=== PATIENT | male | born 1960 | race Caucasian/White ===

== ENCOUNTER 2022-11-20 12:49 | Inpatient (IN) | payer OTHER ==
[2022-11-20 13:46] VITALS: BMI 19.0
[2022-11-20] MEDS ORDERED: MAG HYDROX/AL HYDROX/SIMETH 30 ML UNIT-DOSE CUP PO PRN (16:11)
[2022-11-20] MEDS ORDERED: IBUPROFEN 600 MG TABLET (FP) PO PRN (16:11)
[2022-11-20] MEDS ORDERED: guaiFENesin 600 MG TABLET.ER (FP) PO PRN (16:11)
[2022-11-20] MEDS ORDERED: NALOXONE HCL (KLOXXADO) 8 MG SPRAY NS PRN (16:11)
[2022-11-20] MEDS ORDERED: DICYCLOMINE HCL 10 MG CAPSULE PO PRN (16:11)
[2022-11-20] MEDS ORDERED: POLYETHYLENE GLYCOL (HEALTHYLAX) 3350 17 GM PACKET PO PRN (16:11)
[2022-11-20] MEDS ORDERED: ONDANSETRON *ODT* 4 MG TABLET SL PRN (16:11)
[2022-11-20] MEDS ORDERED: BENZONATATE 200 MG CAPSULE PO PRN (16:11)
[2022-11-20] MEDS ORDERED: hydrOXYzine PAMOATE 25 MG CAPSULE (FP) PO PRN (16:11)
[2022-11-20] MEDS ORDERED: ACETAMINOPHEN 325 MG TABLET (FP) PO PRN (16:11)
[2022-11-20] MEDS ORDERED: BISMUTH SUBSALICYLATE 524 MG/30 ML PO PRN (16:11)
[2022-11-20] MEDS ORDERED: IBUPROFEN 400 MG TABLET (FP) PO PRN (16:11)
[2022-11-20] MEDS ORDERED: BENZOCAINE/MENTHOL (CHLORASEPTIC ) LOZENGE MM PRN (16:11)
[2022-11-20] MEDS ORDERED: LOPERAMIDE HCL 2 MG CAPSULE PO PRN (16:11)
[2022-11-20] MEDS ORDERED: METHOCARBAMOL 500 MG TABLET PO PRN (16:11)
[2022-11-20] MEDS ORDERED: MAGNESIUM HYDROX 2400MG/30ML ORAL SUSPENSION 30 ML CUP PO PRN (16:11)
[2022-11-20] MEDS ORDERED: NALOXONE HCL 0.4 MG/ML VIAL IM PRN (16:11)
[2022-11-20] MEDS: THIAMINE HCL 100 MG TABLET (FP) PO SCH (22:22)
[2022-11-20] MEDS: MELATONIN 5 MG TABLETS PO SCH (22:22)
[2022-11-21] MEDS: PRENATAL VITAMINS W/ FOLIC ACID TABLET (FP) PO SCH (10:25)
[2022-11-21] MEDS ORDERED: diazePAM 5 MG TABLET PO PRN (11:04)
[2022-11-21] MEDS: diazePAM 5 MG TABLET PO SCH ×3 (11:41→23:11)
[2022-11-21 11:51] LABS: HEMATOCRIT 39.1 % (35.4-49); HEMOGLOBIN 13.2 GM/dL (11.7-16.9); MCH 33.6 pg (25.7-33.7); MCHC 33.8 g/dl (32.0-35.9); MEAN CELL VOLUME 99.4 fl (80-96); MEAN PLT VOLUME 8.6 fl (7.5-11.1); PLATELET COUNT 210 10^3/uL (134-434); RBC 3.94 M/mm3 (4.00-5.60); RDW 12.7 % (11.9-15.9); WHITE BLOOD COUNT 3.3 K/mm3 (4.0-10.0)
[2022-11-21 11:51] LABS: POTASSIUM 3.9 mmol/L (3.5-5.1)
[2022-11-21 11:54] LABS: CALCIUM 8.9 mg/dL (8.5-10.1)
[2022-11-21 11:55] LABS: BLOOD UREA NITROGEN 15.1 mg/dL (7-18)
[2022-11-21 11:56] LABS: ALBUMIN 3.4 g/dl (3.4-5.0)
[2022-11-21 11:58] LABS: CREATININE 0.8 mg/dL (0.55-1.3)
[2022-11-21 11:59] LABS: BILIRUBIN,TOTAL 0.5 mg/dL (0.2-1)
[2022-11-21] MEDS: MELATONIN 5 MG TABLETS PO SCH (23:11)
[2022-11-21] MEDS: THIAMINE HCL 100 MG TABLET (FP) PO SCH (23:11)
[2022-11-22] MEDS: diazePAM 5 MG TABLET PO SCH ×5 (05:58→23:10)
[2022-11-22] MEDS: PRENATAL VITAMINS W/ FOLIC ACID TABLET (FP) PO SCH (10:35)
[2022-11-22] MEDS: MELATONIN 5 MG TABLETS PO SCH ×2 (22:52→23:07)
[2022-11-22] MEDS: THIAMINE HCL 100 MG TABLET (FP) PO SCH (22:52)
[2022-11-23] MEDS: diazePAM 5 MG TABLET PO SCH ×3 (06:15→22:31)
[2022-11-23] MEDS: PRENATAL VITAMINS W/ FOLIC ACID TABLET (FP) PO SCH (10:25)
[2022-11-23] MEDS: THIAMINE HCL 100 MG TABLET (FP) PO SCH (22:31)
[2022-11-23] MEDS: MELATONIN 5 MG TABLETS PO SCH (22:31)
[2022-11-24] MEDS: diazePAM 5 MG TABLET PO SCH ×3 (06:55→19:32)
[2022-11-24] MEDS: PRENATAL VITAMINS W/ FOLIC ACID TABLET (FP) PO SCH (09:40)
[2022-11-24] MEDS: MELATONIN 5 MG TABLETS PO SCH (22:50)
[2022-11-24] MEDS: THIAMINE HCL 100 MG TABLET (FP) PO SCH (22:50)
[2022-11-25] MEDS ORDERED: diazePAM 5 MG TABLET PO ONE (06:00)
[2022-11-25] MEDS: PRENATAL VITAMINS W/ FOLIC ACID TABLET (FP) PO SCH (10:28)
[2022-11-25] MEDS: MELATONIN 5 MG TABLETS PO SCH (22:35)
[2022-11-25] MEDS: THIAMINE HCL 100 MG TABLET (FP) PO SCH (22:35)
[2022-11-26] MEDS: PRENATAL VITAMINS W/ FOLIC ACID TABLET (FP) PO SCH (10:53)
[2022-11-26] MEDS: THIAMINE HCL 100 MG TABLET (FP) PO SCH (22:36)
[2022-11-26] MEDS: MELATONIN 5 MG TABLETS PO SCH (22:36)
[2022-11-27 09:59] VITALS: RESP 18
[2022-11-27] MEDS: PRENATAL VITAMINS W/ FOLIC ACID TABLET (FP) PO SCH (10:39)
[2022-11-27 13:26] VITALS: BP 113/73; PULSE 84; TEMP 97.3
== END 2022-11-27 14:28 | disposition other institution (70) | DRG 774 ==
LOC: YASAS 12:49 → Y3N 16:53
PROVIDERS: ADMIT Allergy & Immunology; ATTEND Surgery
PROC: HZ2ZZZZ Detoxification Services for Substance Abuse Treatment (ICD-10-PCS; principal; 2022-11-20)
DX: F10.230 Alcohol dependence with withdrawal, uncomplicated (principal); F14.20 Cocaine dependence, uncomplicated; F12.20 Cannabis dependence, uncomplicated; F17.210 Nicotine dependence, cigarettes, uncomplicated; F41.9 Anxiety disorder, unspecified; M54.50 Low back pain, unspecified; G89.29 Other chronic pain; Z20.822 Contact with and (suspected) exposure to COVID-19; Z86.2 Personal history of diseases of the blood and blood-forming organs and certain disorders involving the immune mechanism; Z86.11 Personal history of tuberculosis
CPT/HCPCS: 36415; 80053; 85027; 86780; 87635